=== PATIENT | male | born 1985 | race Caucasian/White ===

== ENCOUNTER 2024-12-31 02:10 | Emergency (ER) | payer MEDICAID ==
[~2024-12-31] VITALS: Ht 167.6 cm; Wt 105.0 kg
[2024-12-31 02:16] VITALS: O2SAT 95
[2024-12-31 04:20] LABS: BASOPHILS % 0.6 % (0.0-2.0); EOSINOPHILS % 0.3 % (0.0-5.0); HEMATOCRIT. 38.7 % (42.0-52.0); HEMOGLOBIN. 12.5 g/dL (14.0-18.0); LYMPHOCYTES % 12.6 % (20.0-50.0); MEAN PLATELET VOLUME 7.6 fl (7.4-10.4); MONOCYTES % 8.5 % (2.0-8.0); NEUTROPHILS % 78.0 % (40.0-76.0); PLATELET 389 x1000/uL (130-400); RED BLOOD CELL COUNT 4.43 mill/uL (4.7-6.1); RED CELL DISTRIBUTION WIDTH 15.4 % (11.6-14.6)
[2024-12-31 04:39] LABS: CREATININE 0.8 mg/dL (0.6-1.3); UREA NITROGEN BLOOD 14 mg/dL (9-23)
[2024-12-31] MEDS: MORPHINE SULFATE 4 MG/ML INJ (FOR IV/IM USE) IV ONE (04:40)
[2024-12-31 06:22] VITALS: TEMP 36.8
[2024-12-31 06:40] LABS: CREATININE 0.8 mg/dL (0.6-1.3); UREA NITROGEN BLOOD 18 mg/dL (9-23)
[2024-12-31 07:15] VITALS: BP 122/86; PULSE 76; RESP 21; O2SAT 95
== END 2024-12-31 07:19 | disposition short-term general hospital (02) ==
LOC: ER 02:10 → CMPBEDREQ 07:23
DX: M25.512 Pain in left shoulder (principal); M25.522 Pain in left elbow; E78.00 Pure hypercholesterolemia, unspecified; I10 Essential (primary) hypertension; Z96.641 Presence of right artificial hip joint
CPT/HCPCS: 80048; 85025; 36415; 96374; 99285; J2270; Z7610 ×2; A4606

== ENCOUNTER 2025-01-29 19:38 | Emergency (ER) | payer OTHER ==
[~2025-01-29] VITALS: Ht 170.2 cm; Wt 77.0 kg
[~2025-01-29 19:38] MED LIST: OXYC-105 MT; SERT-422 MT
[2025-01-29 19:43] VITALS: O2SAT 97
[2025-01-29] MEDS ORDERED: OXYCODONE HCL/ACETAMINOPHEN 5/325MG TABLET PO ONE (20:00)
[2025-01-29] MEDS ORDERED: KETOROLAC 15MG/ML VIAL IM ONE (20:00)
[2025-01-29 21:34] VITALS: TEMP 36.8
[2025-01-29] MEDS: KETOROLAC 15MG/ML VIAL IM NR (21:44)
[2025-01-29] MEDS: OXYCODONE HCL/ACETAMINOPHEN 5/325MG TABLET PO NR (21:45)
[2025-01-30 00:06] VITALS: BP 120/75; PULSE 89; RESP 16; O2SAT 98
== END 2025-01-30 00:08 | disposition home or self-care (01) ==
LOC: ER 19:38
DX: M25.511 Pain in right shoulder (principal); E78.00 Pure hypercholesterolemia, unspecified; I10 Essential (primary) hypertension; Z96.643 Presence of artificial hip joint, bilateral
CPT/HCPCS: 73030; 96372; 99283; J1885; Z7610